=== PATIENT | male | born 1975 | race Caucasian/White ===

== ENCOUNTER 2018-12-24 14:51 | Emergency (ER) | payer SELFPAY ==
[2018-12-24 14:52] VITALS: BP 130/82; PULSE 90; RESP 17; TEMP 36.6; O2SAT 98; BMI 29.0
--- NOTE | 2018-12-24 15:11 | RAD_ITS ---
STUDY: X-RAY - LEFT KNEE REASON FOR EXAM: Left knee pain status post injury 12 days ago. TECHNIQUE: 4 view(s) of the knee. COMPARISON: None. FINDINGS: Normal visualized distal femur. There is a nondisplaced fracture of the medial tibial plateau. Normal proximal tibiofibular articulation. Normal medial femorotibial compartment. Normal lateral femorotibial compartment. Normal patellofemoral articulation. There is a joint effusion. RAD/Knee 4 or More Views IMPRESSION: Nondisplaced fracture of the medial tibial plateau. Joint effusion. Electronically Signed: Lucas Adams MD at 15:40 EDT Tel , Service support ,
--- NOTE | 2018-12-24 15:16 | ED.VISSUMM ---
- ER Visit Summary Date of Service: 12/24/18 Chief Complaint: Knee pain History of Present Illness: The patient is a 43 M with left knee pain. Pain started about 12 days ago. He was stepping down stairs when he felt his knee move abnormally. He was seen in an outside emergency department. They did not do x-rays. They told him he had a knee strain. He was placed on crutches. Rest, ice, elevate. His pain is worsening. He has severe pain with weightbearing. No other associated symptoms except for some swelling. Physical Examination: Afebrile vital signs unremarkable. Inspection shows mild diffuse swelling. No deformity. Skin intact. Range of motion intact. Neurovascular intact. No laxities. He does have pain on palpation to his anterior knee including the patella, proximal tibia, and bilateral joint lines. Test Results: X-rays pending Emergency Department Course and Treatment: Patient was treated with pain medicine while awaiting x-ray results. X-rays show a left tibial plateau fracture, medial side. Patient was placed in a knee immobilizer. Nonweightbearing. Follow-up with orthopedics. Treatment Plan: As above Disposition: Discharge Impression: 1. Left tibial plateau fracture This note was generated with [employer] dictation software. It may contain incorrect words, spelling, and punctuation that were not noted in review of the chart prior to signing ED Disposition - Plan for ED Patient: Referrals: Care Physician,No Primary [Primary Care Provider] -
[2018-12-24] MEDS: HYDROcodone Bitartrate/Apap 5/325 Tablet PO (15:17)
--- NOTE | 2018-12-24 17:17 | ED.DEP ---
ED Disposition - Plan for ED Patient: Instructions: FRACTURE, Knee Prescriptions: Oxycodone HCl/Acetaminophen [Percocet 5/325] 1 tab PO Q6H PRN PRN 3 Days #12 tab PRN Reason: Pain Prescription Printed Referrals: Mikhail Wallace DO [STAFF PHYSICIAN] -
[2018-12-24 17:46] VITALS: BP 134/80; PULSE 87; RESP 16; O2SAT 99
== END 2018-12-24 17:51 | disposition home or self-care (01) ==
LOC: ED 15:18
PROVIDERS: Emergency Provider Emergency Medicine
DX: S82.145A Nondisplaced bicondylar fracture of left tibia, initial encounter for closed fracture (principal); Z72.0 Tobacco use; X50.9XXA Other and unspecified overexertion or strenuous movements or postures, initial encounter; Y93.01 Activity, walking, marching and hiking; Y92.009 Unspecified place in unspecified non-institutional (private) residence as the place of occurrence of the external cause; Y99.8 Other external cause status
CPT/HCPCS: 73564; 99283

== ENCOUNTER 2023-01-01 13:17 | Emergency (ER) | payer MEDICAID, SELFPAY ==
[2023-01-01 13:18] VITALS: BP 127/71; PULSE 90; RESP 18; TEMP 36.4; O2SAT 100; BMI 30.1
--- NOTE | 2023-01-01 13:41 | EDS_ITS ---
HPI History of Present Illness Chief Complaint: Dental Informant: patient Onset/Context/Timing Onset: Weeks (2) Context: Gradual Onset Timing: Continuous Quality: Throbbing, aching Location: Right lower molar Worsened by: Nothing Relieved by: Topicals Associated Symptoms Assocated Symptom - Dental: jaw swelling, cold sensitivity and hot sensitivity; Negative for fever or face swelling Narrative Narrative: Patient presents with right lower dental pain that has been getting worse over the past 2 weeks. Patient states he was able to make a dentist appointment today. Patient states the pain has gotten progressively worse. Patient describes it as throbbing and aching. Patient states the pain is mainly over his lower right molar. Patient denies any fevers or chills. Patient admits to hot and cold sensitivity. Patient states he had some swelling in his jaw but this improved with a heat pack. Patient states his pain radiates into his right ear. Prior similar symptoms: Yes PFSH PFSH Medical History (Updated 01/01/23 @ 13:[address] Baltazar Melendez DO) No acute medical problems Medical History no medical history no medical history Home Medications oxycodone-acetaminophen 5 mg-325 mg tablet (Percocet) 1 tab PO Q8H #40 tabs 12/30/18 [Rx Last Taken Unknown] penicillin V potassium 500 mg tablet 500 mg PO 4X/DAY #40 tabs 01/01/23 [Rx Last Taken Unknown] Allergy/AdvReac Type Severity Reaction Status Date / Time acetaminophen [From Vicodin] AdvReac Nausea Verified 01/01/23 13:31 hydrocodone [From Vicodin] AdvReac Nausea Verified 01/01/23 13:31 Surgical History (Updated 01/01/23 @ 13:[address] Baltazar Melendez DO) Hx of cholecystectomy Hx of tonsillectomy Social History Smoking Status: Current every day smoker tobacco type: cigarettes ROS ROS ED Constitutional Constitutional ED: Denies chills or fever(s) Eyes Eyes: Denies blurry vision or change in vision ENT ENT ED: Reports ear pain right; Denies rhinorrhea or sore throat Cardiovascular Cardiovascular: Denies chest pain or palpitations Respiratory/Chest Respiratory/Chest: Denies cough or dyspnea Gastrointestinal Gastrointestinal: Reports nausea; Denies vomiting Genitourinary Genitourinary ED: Denies dysuria or hematuria Musculoskeletal Musculoskeletal: Denies back pain or neck pain Integumentary Denies abscess or rash Neurologic Neurologic: Denies headache(s) or weakness Allergic/Immunologic Allergic/Immunologic ED: Denies mouth swelling or urticaria EXAM Physical Exam Const Vital Signs: 01/01/23 13:18 Temperature 97.5 F L Temperature Source Temporal Pulse Rate 90 Respiratory Rate 18 Blood Pressure 127/71 H Blood Pressure Mean 89 Pulse Ox 100 Oxygen Delivery Method Room Air Positive well nourished and well developed General Appearance ED: well developed and NAD HEENT Reports TM's clear Tympanic Membrane ED: Yes TM's clear Mouth ED: Yes oral and palatal mucosa normal, Yes lips normal and Yes tongue normal Mouth: oral and palatal mucosa normal, lips normal and tongue normal Teeth and Gingiva: caries, gingiva abnormal Positive for gingival edema and poor dentition Throat: posterior oropharynx normal Eyes PERRL and EOMs intact bilaterally Neck supple and no JVD General: Negative for anterior neck swelling, tenderness or submandibular swelling Neuro oriented x3, CN's II-XII intact bilaterally, moves all extremities, no focal mo tor deficits and no sensory deficits noted Sensorium / Orientation: alert Motor Exam: strength 5/5 throughout Psych mental status grossly normal MDM MDM MDM Narrative Medical decision making narrative: Smoking cessation was discussed. Patient was advised that this is most likely infected dental caries. Patient was given a prescription for Pen-Vee K. Patient was given his first dose here. Patient was instructed to take Tylenol or ibuprofen as needed for pain. Patient was instructed to follow-up with his dentist as scheduled. Patient was instructed return if worse in any way. Patient understood and was agreeable with the plan. All questions were answered. Discharge Plan Triage Chief Complaint: Dental ED Provider: Baltazar Melendez Dx/Rx/DC Orders Clinical Impression: Infected dental caries Instructions: ED Dental Pain, ED Dental Cavity Prescriptions: New penicillin V potassium 500 mg tablet 500 mg PO 4X/DAY Qty: 40 0RF No Action oxycodone-acetaminophen [Percocet] 5-325 mg tablet 1 tab PO Q8H Qty: 40 0RF Rx Instructions: 1-2 tabs every 8 hrs as needed for pain Primary Care Provider: Care Physician,No Primary Referrals: Care Physician,No Primary [Primary Care Provider] - Dentist,Your [STAFF PHYSICIAN] - Keep Salvatore appointment Disposition Disposition: Home, Self Care
[2023-01-01 13:57] VITALS: BP 114/66; PULSE 64; RESP 18; O2SAT 95
[2023-01-01] MEDS: Penicillin Vk 250 MG Tablet 500 MG PO (13:59)
[2023-01-01] MEDS: Ibuprofen 400 MG Tablet 800 MG PO (13:59)
== END 2023-01-01 14:01 | disposition home or self-care (01) ==
PROVIDERS: Emergency Provider Emergency Medicine; Visit Provider Emergency Medicine
DX: K02.9 Dental caries, unspecified (principal); F17.210 Nicotine dependence, cigarettes, uncomplicated; H92.01 Otalgia, right ear
CPT/HCPCS: 99283

== ENCOUNTER 2023-02-02 18:51 | Emergency (ER) | payer MEDICAID, SELFPAY ==
[2023-02-02 18:53] VITALS: BP 176/102; PULSE 81; RESP 17; TEMP 36.6; O2SAT 98; BMI 33.1
--- NOTE | 2023-02-02 19:24 | EDS_ITS ---
HPI History of Present Illness Chief Complaint: Overdose Detail of Chief Complaint: Unresponsiveness after taking what patient believes was Dee Informant: patient Onset/Context/Timing Onset: Today Context: Sudden Onset Timing: Intermittent Quality: Unresponsiveness Location: Residence Current Severity: Gone Maximum Severity: Severe Worsened by: Opiate analgesia Relieved by: Narcan Associated Symptoms Associated Symptoms: Leg swelling for the past several weeks Narrative Narrative: Patient is a 47-year-old male. 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 He is present but unemployed. He has been sitting a lot. He denies orthopnea or PND. He denies cardiac or respiratory symptoms. Does report swelling of his legs. He denies history of kidney problems. He does have history of drug abuse. He would not answer when he last used. His response was he does not have a bad problem. He denies headache, visual, ocular auditory symptoms. He denies cardiac or respiratory symptoms. He denies GI symptoms. He denies urologic symptoms. Prior similar symptoms: Yes Recent Illness/Hospitalization: No PFSH PFSH Medical History No acute medical problems Home Medications NK 02/02/23 [History Last Taken Unknown] Allergy/AdvReac Type Severity Reaction Status Date / Time acetaminophen [From Vicodin] AdvReac Nausea Verified 02/02/23 18:52 hydrocodone [From Vicodin] AdvReac Nausea Verified 02/02/23 18:52 Surgical History Hx of cholecystectomy Hx of tonsillectomy Social History (Updated 02/02/23 @ 19:[address] Lei Braswell MD) household members: children Smoking Status: Current every day smoker tobacco type: cigarettes substance use type: other details: Drug use but specified not a significant problem ROS ROS ED Constitutional Constitutional ED: Denies chills, fever(s) or subjective Eyes Eyes: Denies blurry vision, change in vision or diplopia ENT ENT ED: Denies ear pain, rhinorrhea or sore throat Cardiovascular Cardiovascular: Denies chest pain or palpitations Respiratory/Chest Respiratory/Chest: Denies cough, dyspnea or dyspnea on exertion Gastrointestinal Gastrointestinal: Denies abdominal pain, nausea or vomiting Musculoskeletal Musculoskeletal: Denies arthralgias, back pain or myalgias Integumentary Denies abscess or rash Neurologic Neurologic: Denies headache(s), paresthesias or weakness Endocrine Endocrinology: Denies cold intolerance or heat intolerance Hematologic/Lymphatic Hematologic/Lymphatic: Reports systems reviewed and no addt'l complaints, except as documented EXAM Physical Exam Const Vital Signs: 02/02/23 18:53 Temperature 97.9 F Temperature Source Temporal Pulse Rate 81 Respiratory Rate 17 Blood Pressure 176/102 H Blood Pressure Mean 126 Pulse Ox 98 Oxygen Delivery Method Room Air Positive well nourished, well developed and unkempt Constitutional Narrative: Reports being cold. General Appearance ED: unkempt, well developed and NAD; Negative for pallor HEENT Reports moist mucous membranes HEENT Narrative: Atraumatic normocephalic. Ears are normal. Nares are patent. Posterior pharynx is normal. Eyes PERRL and EOMs intact bilaterally General Eye ED: Negative for pale conjunctiva or scleral icterus Neck no lymphadenopathy, supple and no JVD Resp normal respiratory effort and clear to auscultation bilaterally Cardio regular rate, regular rhythm, S1 normal heart sound, S2 normal heart sound and no murmurs GI normal to inspection, nondistended, normoactive bowel sounds, non-tender, non- distended and no masses; Negative for hepatosplenomegaly Auscultation: normoactive bowel sounds Back/Spine no CVA tenderness Extremity normal to inspection General Extremety ED: Yes edema General Extremity: edema Neuro oriented x3, CN's II-XII intact bilaterally and no sensory deficits noted Neuro Narrative: Does have palpable DP pulse bilaterally, 2+. He has hair on his toes. Sensorium / Orientation: alert Motor Exam: strength 5/5 throughout Psych Appearance: unkempt Mood & Affect: depressed Skin no rashes or lesions noted, no wounds and skin turgor normal General Skin Exam: Negative for jaundice or pallor MDM MDM MDM Narrative Medical decision making narrative: And responded to Narcan will observe for 30 minutes. If he remains alert and awake he will be discharged home. He was told he has dependent edema. Treatment is to elevate and elevation means toes above his nose and he needs to get up and ambulate more. Treatment and Re-Evaluation :: Reassessed at 2004. He is awake alert. Vitals are normal. Is not hypoxic. Discharge Plan Triage Chief Complaint: Overdose ED Provider: Lei Braswell Dx/Rx/DC Orders Clinical Impression: Dependent lymphedema, Sinus tachycardia seen on director of cardiac rehabilitation, Opiate overdose Instructions: ED Peripheral Edema, Bilateral, ED Overdose, Opiate Prescriptions: No Action NK Primary Care Provider: Care Physician,No Primary Referrals: Care Physician,No Primary [Primary Care Provider] - Disposition Disposition: Home, Self Care
== END 2023-02-02 20:29 | disposition home or self-care (01) ==
PROVIDERS: Emergency Provider Emergency Medicine; Visit Provider Emergency Medicine
DX: T40.601A Poisoning by unspecified narcotics, accidental (unintentional), initial encounter (principal); M79.89 Other specified soft tissue disorders; R00.0 Tachycardia, unspecified; R40.4 Transient alteration of awareness; F17.210 Nicotine dependence, cigarettes, uncomplicated; I89.0 Lymphedema, not elsewhere classified
CPT/HCPCS: 99284

== ENCOUNTER 2023-07-02 16:26 | Emergency (ER) | payer MEDICAID, SELFPAY ==
[2023-07-02 16:33] VITALS: BP 158/88; PULSE 85; RESP 18; TEMP 36.2; O2SAT 99
--- NOTE | 2023-07-02 16:45 | RAD_ITS ---
STUDY: X-RAY - LEFT KNEE REASON FOR EXAM: Male, 47 years old. pain, inability to ambulate TECHNIQUE: 4 view(s) of the knee. COMPARISON: None. FINDINGS: Normal visualized distal femur. Normal visualized proximal tibia and fibula. Normal proximal tibiofibular articulation. Narrowed medial femorotibial compartment. Normal lateral femorotibial compartment. Normal patellofemoral articulation. The soft tissue structures are unremarkable. RAD/Knee 4 or More Views IMPRESSION: Mild degenerative changes. No acute fracture or other significant bony pathology Electronically Signed: Rey Buitrago MD at 17:02 EDT Reading Location ID and State: [facility] / [place] Tel , Service support ,
--- NOTE | 2023-07-02 18:40 | ED.VIS.LOWEX ---
HPI History of Present Illness Chief Complaint: Lower Extremity Injury Narrative Narrative: 47-year-old male past medical history of remote left tibial plateau fracture with nonsurgical intervention presents with left knee pain that has had since Sunday, 3 days ago. He states that he was in the van and went to get out and jumped down and deepti his left knee. Since then he has been having pain that is worse with movement and weightbearing. He has been taking ibuprofen and [id number] medications without relief. Of note, he is currently in [facility] for rehab and does not want to jeopardize his sobriety. He presents with left knee pain. [facility] Medical History No acute medical problems Home Medications NK 02/02/23 [History Last Taken Unknown] Allergy/AdvReac Type Severity Reaction Status Date / Time acetaminophen [From Vicodin] AdvReac Nausea Verified 07/02/23 16:33 hydrocodone [From Vicodin] AdvReac Nausea Verified 07/02/23 16:33 Surgical History Hx of cholecystectomy Hx of tonsillectomy Social History (Updated 02/02/23 @ 19:[address] Lei Braswell MD) household members: children Smoking Status: Current every day smoker tobacco type: cigarettes substance use type: other details: Drug use but specified not a significant problem ROS ROS ED ROS Narrative Constitutional: No fever, no chills. HEENT: No sore throat. No neck pain. No loss of vision. No rhinorrhea. Cardiovascular: No chest pain. No palpitations. No pedal edema. Respiratory: No cough, no shortness of breath. Abdominal: No abdominal pain. No nausea. No vomiting. Genitourinary: No dysuria. No hematuria. Musculoskeletal: No myalgias. Positive left knee pain somewhat worse with weightbearing and movement. Neurologic: No headaches. No dizziness. No lightheadedness. Skin: No rash. No change in color. Psychiatric: No depression. No anxiety. EXAM Physical Exam Narrative Exam Narrative: Afebrile. Vital signs noted. HEENT: Normocephalic. Atraumatic. PERRL, EOMI. Neck soft and supple. No point tenderness or step off. Cardiovascular: Regular rate and rhythm. No murmurs, rubs, or gallops appreciated. Respiratory: No tachypnea. Lungs clear to auscultation bilaterally. Gastrointestinal: Abdomen soft, nontender, with normoactive bowel sounds. No rebound or guarding. Neurological: Awake. Alert. Nonfocal, nonlateralizing. Skin: No rash. Normal color. No pallor. Musculoskeletal: No pedal edema. Full range of motion extremities. Able to raise left leg off bed without difficulty. Flexion extension mechanism intact. Diffuse tenderness to palpation without erythema or noted effusion. Neurovascular intact distally. Palpable dorsalis pedis pulse, left. Const Vital Signs: 07/02/23 16:33 Temperature 97.2 F L Temperature Source Temporal Pulse Rate 85 Respiratory Rate 18 Blood Pressure 158/88 H Blood Pressure Mean 111 Pulse Ox 99 Oxygen Delivery Method Room Air MDM MDM MDM Narrative Medical decision making narrative: I reviewed the patient's prior records. He states that he may have gone to [facility] when he had his tibial plateau fracture. In the differential diagnosis is knee sprain versus internal derangement of knee versus patellar tendon partial tear. I have low suspicion for patellar tendon problem as there is no palpable deficit and he is able to raise his leg off the bed without difficulty. RN ordered x-rays of the left knee obtained and interpreted by myself independently which shows arthritis but no evidence of an acute fracture, no effusion. I reviewed the radiology report which confirms my independent interpretation. I discussed with him [place] wrap, but he states he has been doing that and is requesting a knee immobilizer. I do not feel he needs crutches. He can be weightbearing as tolerated. I do not feel narcotics are indicated as he is currently in rehab. He will continue elevation of his knee and he was referred to the orthopedic surgeon on-call, Dr. Erwin Scott. I feel he can be discharged to follow-up. Return instructions reviewed. Disposition is discharged home in stable condition. History & Record Review Discussion w/independent historian: Patient Additional record(s) reviewed:: Prior ED visit Radiography Diagnostic Testing: Clinical Impression(s) from Imaging Studies Knee X-Ray 07/02/23 16:45 IMPRESSION: Mild degenerative changes. No acute fracture or other significant bony pathology Electronically Signed: Rey Buitrago MD at 17:02 EDT , Discharge Plan Triage Chief Complaint: Lower Extremity Injury ED Provider: Osiel Brown Dx/Rx/DC Orders Clinical Impression: Left knee sprain, Knee joint pain Instructions: ED Meniscal Injury Knee Poss, ED Knee Pain of Uncertain Cause, ED Knee Sprain Prescriptions: No Action NK Primary Care Provider: Care Physician,No Primary Referrals: Erwin Scott MD [Med Staff - Active Staff] - As soon as possible Care Physician,No Primary [Primary Care Provider] - Activity Restrictions/Additional Instructions: Continue Tylenol or ibuprofen or naproxen as needed for pain. Elevate your left knee when possible. Disposition Disposition: Home, Self Care
== END 2023-07-02 19:19 | disposition home or self-care (01) ==
PROVIDERS: Emergency Provider Emergency Medicine; Visit Provider Emergency Medicine
DX: S83.92XA Sprain of unspecified site of left knee, initial encounter (principal); F17.210 Nicotine dependence, cigarettes, uncomplicated; Z87.81 Personal history of (healed) traumatic fracture; X50.9XXA Other and unspecified overexertion or strenuous movements or postures, initial encounter
CPT/HCPCS: 73564; 99283

== ENCOUNTER 2024-06-04 09:33 | Observation (INO) | payer MEDICAID, SELFPAY ==
[2024-06-04] VITALS (8 sets, daily range): BP systolic 128–156; BP diastolic 68–89; PULSE 65–88; RESP 16–18; TEMP 36.4–37.2; O2SAT 94–100; BMI 34.6; BMI 34.4
--- NOTE | 2024-06-04 09:44 | EKG12_ITS ---
Test Reason : Blood Pressure : */* mmHG Vent. Rate : 80 BPM Atrial Rate : 80 BPM P-R Int : 140 ms QRS Dur : 100 ms QT Int : 368 ms P-R-T Axes : 54 16 9 degrees QTcB Int : 424 ms Normal sinus rhythm Normal ECG When compared with ECG of 26-Nov-2011 08:07, Questionable change in QRS axis Confirmed by CY GIBBS, ANNETTE ([id number]), manuscript editor MARIAH TREVIÑO ([id number]) on 06/09/2024 7:38:31 AM Referred By: MATIAS Confirmed By: ANNETTE BENOIT MD
--- NOTE | 2024-06-04 09:49 | CT_ITS ---
EXAM: CT Abdomen and Pelvis With Intravenous Contrast CLINICAL INDICATION: LEFT FLANK PAIN TECHNIQUE: Axial computed tomography images of the abdomen and pelvis with intravenous contrast. This CT exam was performed using one or more of the following dose reduction techniques: automated exposure control, adjustment of the mA and/or kV according to patient size, and/or use of iterative reconstruction technique. COMPARISON: No relevant prior studies available. FINDINGS: LUNG BASES: Unremarkable. No mass. No consolidation. ABDOMEN: LIVER: Hepatomegaly with fatty infiltration. GALLBLADDER AND BILE DUCTS: Cholecystectomy. No ductal dilation. PANCREAS: Unremarkable. No mass. No ductal dilation. SPLEEN: Unremarkable. No splenomegaly. ADRENALS: Unremarkable. No mass. KIDNEYS AND URETERS: Unremarkable. No stones within either kidney. No hydronephrosis. STOMACH AND BOWEL: Fecal retention in the colon consistent with constipation. No obstruction. No mucosal thickening. PELVIS: APPENDIX: Normal appendix. BLADDER: Unremarkable. No mass. REPRODUCTIVE: Unremarkable as visualized. ABDOMEN and PELVIS: INTRAPERITONEAL SPACE: Unremarkable. No free air. No significant fluid collection. BONES/JOINTS: No acute fracture. No dislocation. SOFT TISSUES: Left inguinal hernia. VASCULATURE: Scattered calcified atherosclerotic disease of aorta. No abdominal aortic aneurysm. LYMPH NODES: Unremarkable. No enlarged lymph nodes. CT/Abdomen/Pelvis W IV Cont ONLY IMPRESSION: 1. Normal appendix. 2. Hepatomegaly with fatty infiltration. 3. No obstructive uropathy. 4. Fecal retention in the colon consistent with constipation. 5. Left inguinal hernia. Reading Location[facility]
--- NOTE | 2024-06-04 09:50 | EX.ED.DYSGE1 ---
HPI History of Present Illness Chief Complaint: Flank Pain Narrative Narrative: Patient is a 48-year-old male with past medical history of diabetes, hypertension who presents to the emergency department with a chief complaint of left back pain. Patient states that he is concerned he is trying to pass a kidney stone. He states he does not have a history of kidney stones. Patient states that his A1c has been running high near 13 for a while now. He states that he saw his doctor recently as his glucose meter has been reading high and noted that they increased his glipizide dose and noted that they gave him insulin pens to use but states that he has been unable to use this as there is no needles that came with the pens. He states that the pain is worsening he states that he is very thirsty drinking a lot of fluids and peeing a lot lately. [facility] Medical History No acute medical problems Home Medications ?Medication ?Instructions ?Recorded ?Last Taken ?Type amlodipine 10 mg tablet 10 mg PO DAILY 06/04/24 06/04/24 History aripiprazole 10 mg tablet 10 mg PO BID 06/04/24 06/04/24 History aspirin 81 mg tablet,delayed 81 mg PO DAILY 06/04/24 06/04/24 History release glipizide 10 mg tablet 10 mg PO DAILY 06/04/24 06/04/24 History hydrochlorothiazide 12.5 mg tablet 12.5 mg PO DAILY 06/04/24 06/04/24 History insulin glargine 100 unit/mL (3 20 unit subcut QPM 06/04/24 Unknown History mL) subcutaneous pen (Lantus Solostar U-100 Insulin) trazodone 150 mg tablet 150 mg PO QHS 06/04/24 06/03/24 History Allergy/AdvReac Type Severity Reaction Status Date / Time acetaminophen (From Vicodin) AdvReac Nausea Verified 06/04/24 09:33 hydrocodone (From Vicodin) AdvReac Nausea Verified 06/04/24 09:33 Surgical History Hx of tonsillectomy Hx of cholecystectomy Social History household members: children Smoking Status: Current every day smoker tobacco type: cigarettes substance use type: other details: Drug use but specified not a significant problem ROS ROS ED ROS Narrative Constitutional: Denies fevers, chills, headaches Cardiovascular: Denies chest pain or palpitations Respiratory: Denies coughing wheezing shortness of breath Abdomen: Denies abdominal pain nausea vomiting : Complains urinary symptoms as noted above Neurological: Denies numbness, weakness, tingling Musculoskeletal: Complains of left flank pain as noted above Skin: Denies any rashes or lesions EXAM Physical Exam Narrative Exam Narrative: General: Patient is lying in bed rest comfortably did not appear to be in acute distress Head: Atraumatic, normocephalic Eyes: PERRL bilaterally, EOMI bilateral, no conjunctival injection noted Neck: Soft, supple and trachea midline Cardiovascular: Regular rate and rhythm no murmurs gallops rubs noted Respiratory: Clear to auscultation bilaterally Abdomen: Soft, nondistended, nontender to palpation Musculoskeletal: Patient's left flank pain noted on exam, no tense palpation midline of the thoracolumbar spine Extremities: +5/5 strength noted in the bilateral upper and lower extremities Neurological: Patient following commands knew that he was at [facility] years 2024 Skin: Warm, dry, intact no rashes lesions noted Const Vital Signs: 06/04/24 09:33 06/04/24 09:36 06/04/24 12:01 Temperature 98.9 F Temperature Source Oral Pulse Rate 88 70 Respiratory Rate 16 18 Blood Pressure 156/89 H 137/70 H Blood Pressure Mean 111 92 Pulse Ox 100 97 Oxygen Delivery Method Room Air Room Air MDM MDM MDM Narrative Medical decision making narrative: Patient is a 48-year-old male who presented to the emergency department the chief complaint of left flank pain and hyperglycemia. On the differential diagnose includes but not limited to UTI, pyelonephritis, urolithiasis, AAA, ACS, HHS, hyperglycemia, DKA. Once workup is obtained reviewed he will be reevaluated. Patient be given IV fluids. Patient CBC was reviewed and showed a white blood count of 5.7, he was 18.6 hemoconcentrated likely secondary to volume depletion, plate count was 135. Patient sodium low indicating hyponatremia although this is likely pseudohyponatremia in the setting of his hyperglycemia at 119, potassium was 3.9, anion gap of 24 with a CO2 of 10.6. Patient AST and ALT were 21 and 133, beta-hydroxybutyrate normal at 0.8. Patient's urinalysis did show ketones venous blood gas will be added on. Patient's glucose was noted to be 667 he was given 15 units subcutaneous insulin was given additional IV fluids. Patient CT abdomen pelvis showed normal appendix, hepatomegaly with fatty infiltration, no obstructive uropathy. Fecal retention in the colon consistent with constipation with a left inguinal hernia. Did a genitourinary exam and he has no pain or tenderness in the testicles, epididymides bilaterally, no concern for testicular torsion or incarcerated hernia. Patient's EKG showed sinus rhythm rate of 80 bpm. At this point time will discuss case with hospitalist for admission. Did discuss case with hospitalist Dr. Handy who accept patient for admission. Given his large anion gap and him not tolerating oral intake we will treat him as DKA and placed him on insulin drip and in the intensive care unit. Discussed this plan with the patient and family bedside they are agreeable this plan all question concerns answered. Lab Data Labs: Laboratory Results - last 24 hr 06/04/24 06/04/24 09:58 10:00 WBC 5.7 RBC 6.05 Hgb 18.6 H* Hct 50.3 MCV 83.1 MCH 30.7 MCHC 37.0 H RDW Std Deviation 36.9 RDW Coeff of Eric 12.1 Plt Count 135 L MPV 12.3 H Immature Gran % (Auto) 0.400 Neut % (Auto) 57.3 Lymph % (Auto) 31.7 [place] % (Auto) 8.6 Eos % (Auto) 1.1 Baso % (Auto) 0.9 Absolute Neuts (auto) 3.3 Absolute Lymphs (auto) 1.80 Nucleated RBC % 0 [address] Review May foll Sodium 119 L* Potassium 3.9 Chloride 85 L Carbon Dioxide 10.6 L Anion Gap 24 H BUN 16 Creatinine 0.84 Estim Creat Clear Calc 130.36 Est GFR (MDRD) Non-Af 106 BUN/Creatinine Ratio 18.5 Glucose 667 H* Lactic Acid 1.8 Calcium 9.1 Total Bilirubin 0.44 AST 121 H ALT 133 H Alkaline Phosphatase 114 Total Protein 7.7 Albumin 3.6 Globulin 4.1 Albumin/Globulin Ratio 0.9 Lipase 46 b-Hydroxybutyric mmol/L 0.8 Urine Color Yellow Urine Clarity Clear Urine pH 6.5 Ur Specific [place] 1.010 Urine Protein 15 H Urine Glucose (UA) 1000 H Urine Ketones 15 H Urine Occult Blood Negative Urine Nitrite Negative Urine Bilirubin Negative Urine Urobilinogen Normal Ur Leukocyte Esterase Negative Urine RBC 0 SEEN Urine WBC 0 SEEN Ur Squamous Epith Cells 0 SEEN Urine Bacteria 0 SEEN Urine Mucus 0 SEEN Radiography Diagnostic Testing: Clinical Impression(s) from Imaging Studies Abdomen/Pelvis CT 06/04/24 09:49 IMPRESSION: 1. Normal appendix. 2. Hepatomegaly with fatty infiltration. 3. No obstructive uropathy. 4. Fecal retention in the colon consistent with constipation. 5. Left inguinal hernia. Reading Location: [facility] Discharge Plan Triage Chief Complaint: Flank Pain ED Provider: Vinicius Mesa Dx/Rx/DC Orders Clinical Impression: High anion gap metabolic acidosis, Flank pain, Hernia, inguinal, left, Hyperglycemia, Hyponatremia Prescriptions: No Action glipizide 10 mg tablet 10 mg PO DAILY aspirin 81 mg tablet,delayed release (DR/EC) 81 mg PO DAILY amlodipine 10 mg tablet 10 mg PO DAILY trazodone 150 mg tablet 150 mg PO QHS aripiprazole 10 mg tablet 10 mg PO BID hydrochlorothiazide 12.5 mg tablet 12.5 mg PO DAILY insulin glargine [Lantus Solostar U-100 Insulin] 100 unit/mL (3 mL) insulin pen 20 unit subcut QPM Patient Comments: PT WAS GIVEN PENS FROM MD OFFICE ON 06/02/24, BUT NOT GIVEN PEN NEEDLES SO HASNT BEEN ABLE TO ADMINISTER. Primary Care Provider: Sonido Mcneil [facility] Referrals: Care Physician,No Primary [Non-Staff] - Print Language: Portuguese Disposition Disposition: Acute Care Hospital [facility]
[2024-06-04] MEDS: 0.9% Normal Saline (1000mL) 1,000 ML 999 ML IV ×2 (10:08→14:07)
[2024-06-04] MEDS: Ondansetron 4 MG/2 ML Vial IV ×2 (10:09→12:16)
[2024-06-04] MEDS: Morphine 4 MG/ML Syringe IV ×2 (10:09→12:15)
[2024-06-04 10:11] LABS: Bacteria 0 SEEN /hpf (None Seen); Mucous, Urine 0 SEEN /hpf (<or=2+); Squamous Epithelial Cells - UA 0 SEEN /hpf (0-5); White Blood Cells 0 SEEN /hpf (0-5)
[2024-06-04 10:20] LABS: Absolute Neutrophil Count 3.3 X10^3/uL (2.0-7.7); Basophil# 0.05 X10^3/uL; Basophil% 0.9 % (0-1); Eosinophil# 0.06 X10^3/uL; Eosinophils% 1.1 % (0-5); Hematocrit 50.3 % (40-54); Lymphocyte % 31.7 % (19-41); Mean Corpuscular Hgb 30.7 pg (27.0-32.0); Mean Corpuscular Volume 83.1 fL (80-94); Mean Platelet Vol. 12.3 fl (6.2-12.0); Monocyte# 0.49 X10^3/uL; Monocyte% 8.6 % (0-10); NRBC Flagged by Analyzer 0 % (0-5); Neutrophil # 3.26 X10^3/uL (2.7-7.7); Neutrophil % 57.3 % (47-70); Platelet Count 135 K/mm3 (150-450); RBC Distribution Width CV 12.1 % (11.6-14.6); RBC Distribution Width SD 36.9 fl (35.1-43.9); Red Blood Count 6.05 M/mm3 (4.6-6.2); White Blood Count 5.7 K/mm3 (4.4-11.0)
[2024-06-04 10:23] LABS: Color, Urine Yellow (Yellow); Glucose, Dipstick 1000 mg/dl (Normal); Ketone-Dipstick 15 mg/dl (Negative); Leukocyte Esterase-Dipstick Negative /ul (Negative); Nitrite-Dipstick Negative (Negative); Occult Blood-Urine Negative /ul (Negative); Protein-Dipstick 15 mg/dl (Negative); Urine Bilirubin Dipstick Negative (Negative); Urine Clarity Clear (Clear); Urine Urobilinogen Normal (Normal); Urine pH 6.5 (5.0 - 8.0)
[2024-06-04 10:30] LABS: Red Blood Cells-Urine 0 SEEN /hpf (0-5)
[2024-06-04 10:36] LABS: Hemoglobin 18.6 g/dL (13.0-16.5)
[2024-06-04 10:38] LABS: Pathologist Review May foll
[2024-06-04 10:42] LABS: Lactic Acid 1.8 mmol/L (0.0-2.0)
[2024-06-04 10:43] LABS: BETA-HYDROXYBUTYRATE 0.8 mmol/L (0.0-0.3); Lipase 46 U/L (13-75)
[2024-06-04 11:00] LABS: ALB/GLOB Ratio 0.9 RATIO (0.9-2.4); AST(SGOT) 121 U/L (<=37); Alanine Aminotransfer ALT/SGPT 133 U/L (<=46); Albumin, Serum 3.6 g/dL (3.5-5.0); Alkaline Phosphatase 114 U/L (40-129); Anion Gap 24 (5-15); BUN 16 mg/dL (4-19); BUN/Creat Ratio 18.5 RATIO (10-20); Calcium,Total 9.1 mg/dL (7.6-11.0); Carbon Dioxide 10.6 mmol/L (21.0-32.0); Chloride 85 mmol/L (98-108); Creatinine, Serum 0.84 mg/dL (0.70-1.20); EST Glomerular Filtration Rate 106 (>60); Estimated Creatinine Clearance 130.36 ml/min (50-250); Globulin 4.1 g/dL (2.2-4.2); Potassium 3.9 mmol/L (3.3-5.1); Protein, Total 7.7 g/dL (5.9-8.4); Total Bilirubin 0.44 mg/dL (0.00-1.30)
[2024-06-04 11:18] LABS: Glucose 667 mg/dL (70-99); Sodium Level 119 mmol/L (133-145)
[2024-06-04] MEDS: Insulin Lispro 100 UNIT/ML INSULN.PEN 15 UNIT SC (11:36)
--- NOTE | 2024-06-04 13:15 | PCM.HP.STD ---
HPI - General General Date of Admission: 06/04/24 Date of Service: 06/04/24 Chief Complaint: Worsening abdominal/flank pain with polyuria and polydipsia HPI Narrative ALFONSO LINARES, is a 48 M who presented to [facility] ED on 06/04/2024 with worsening abdominal/flank pain with polyuria and polydipsia. Patient has history of recently diagnosed type 2 diabetes about 4 to 5 months ago. He follows with the [facility] clinic. He was previously on only glipizide but was found to have an A1c of around 13% somewhat recently, so his PCP there prescribed him long-acting insulin at night. However, patient states that he did not get any needles with the insulin pens and has not been taking the insulin. He has had significant polyuria and polydipsia over the past several days. Yesterday night and into this morning he developed significant left-sided abdominal/flank pain. [place] like he was trying to pass a kidney stone. Does not have history of kidney stones. In the ED he was found to have a glucose of 667. Did have a bicarbonate of 10 and anion gap of 24, but notably hydroxybutyrate was negative. CT abdomen pelvis showed fecal retention with constipation but no other issues noted. He was given 2 L of IV fluids, doses of Zofran and IV morphine and after these things he noted that he was feeling much improved. Noted that he was feeling hungry and wanted to have food when possible. Given all of these findings, hospitalist was contacted for admission. I saw the patient at bedside in the ED, mother was present. Patient was mildly fatigued appearing but otherwise sitting back comfortably in bed, conversing normally and in no acute distress. Had good skin turgor and tone and stated that he felt much improved after the treatments in the ED. Stated his abdominal/flank pain was essentially gone. Denied any recent fevers or chills. Denied any other pain or discomfort currently. No other acute concerns. [facility] Medical History No acute medical problems Home Medications ?Medication ?Instructions ?Recorded ?Last Taken ?Type amlodipine 10 mg tablet 10 mg PO DAILY 06/04/24 06/04/24 History aripiprazole 10 mg tablet 10 mg PO BID 06/04/24 06/04/24 History aspirin 81 mg tablet,delayed 81 mg PO DAILY 06/04/24 06/04/24 History release glipizide 10 mg tablet 10 mg PO DAILY 06/04/24 06/04/24 History hydrochlorothiazide 12.5 mg tablet 12.5 mg PO DAILY 06/04/24 06/04/24 History insulin glargine 100 unit/mL (3 20 unit subcut QPM 06/04/24 Unknown History mL) subcutaneous pen (Lantus Solostar U-100 Insulin) trazodone 150 mg tablet 150 mg PO QHS 06/04/24 06/03/24 History Allergy/AdvReac Type Severity Reaction Status Date / Time acetaminophen (From Vicodin) AdvReac Nausea Verified 06/04/24 09:33 hydrocodone (From Vicodin) AdvReac Nausea Verified 06/04/24 09:33 Surgical History Hx of tonsillectomy Hx of cholecystectomy Social History household members: children Smoking Status: Current every day smoker tobacco type: cigarettes substance use type: other details: Drug use but specified not a significant problem ROS Constitutional Constitutional: Reports fatigue; Denies chills, fever(s) or weakness Eyes Eyes: Denies change in vision Cardiovascular Cardiovascular: Denies chest pain Respiratory/Chest Respiratory/Chest: Denies shortness of breath at rest Gastrointestinal Gastrointestinal: Reports abdominal pain, constipation and nausea; Denies diarrhea or vomiting Genitourinary Genitourinary: Denies dysuria Musculoskeletal Musculoskeletal: Denies arthralgias or myalgias Neurologic Neurologic: Denies dizziness or headache(s) Endocrine Endocrinology: Reports polydipsia and polyuria Vital Signs Vital Signs Vital Signs: 06/04/24 09:33 06/04/24 09:36 06/04/24 12:01 Temperature 98.9 F Temperature Source Oral Pulse Rate 88 70 Respiratory Rate 16 18 Blood Pressure 156/89 H 137/70 H Blood Pressure Mean 111 92 Pulse Ox 100 97 Oxygen Delivery Method Room Air Room Air Weight Weight: 109.497 kg Body Mass Index (BMI) 34.6 Physical Exam Const alert, oriented x3 and no apparent distress Constitutional Narrative: Middle-age male, class I obesity, mildly fatigued appearing but otherwise sitting back comfortably in bed, conversing normally and in no acute distress. General Appearance: cooperative and comfortable HEENT normocephalic, head/scalp atraumatic, hearing grossly normal bilaterally, nasal mucous membranes and turbinates normal and moist oral mucous membranes Eyes PERRL, EOMs intact bilaterally and conjunctivae normal Neck full ROM Chest inspection of chest normal Resp normal respiratory effort, normal air movement, no use of accessory muscles and clear to auscultation bilaterally Cardio regular rate, regular rhythm, no murmurs and peripheral pulses 2+ throughout GI normal to inspection, nondistended, normoactive bowel sounds, soft to palpation, non-tender and non-distended no CVA tenderness Bladder / Kidney Exam: bladder normal to palpation Back/Spine normal ROM Extremity normal to inspection, full ROM and no pedal edema Skin no rashes or lesions noted Neuro moves all extremities and no focal motor deficits Speech: speech normal Motor Exam: strength 5/5 throughout Psych mental status grossly normal Results Lab / Micro Data 06/04/24 09:58 06/04/24 09:58 Labs: Laboratory Results - last 24 hr 06/04/24 09:58: WBC 5.7, RBC 6.05, Hgb 18.6 H*, Hct 50.3, MCV 83.1, MCH 30.7, MCHC 37.0 H, RDW Std Deviation 36.9, RDW Coeff of Eric 12.1, Plt Count 135 L, MPV 12.3 H, Immature Gran % (Auto) 0.400, Neut % (Auto) 57.3, Lymph % (Auto) 31.7, [place] % (Auto) 8.6, Eos % (Auto) 1.1, Baso % (Auto) 0.9, Absolute Neuts (auto) 3.3, Absolute Lymphs (auto) 1.80, Nucleated RBC % 0, Diff Path Review July, Sodium 119 L*, Potassium 3.9, Chloride 85 L, Carbon Dioxide 10.6 L, Anion Gap 24 H, BUN 16, Creatinine 0.84, Estim Creat Clear Calc 130.36, Est GFR (MDRD) Non-Af 106, BUN/Creatinine Ratio 18.5, Glucose 667 H*, Lactic Acid 1.8, Calcium 9.1, Total Bilirubin 0.44, AST 121 H, ALT 133 H, Alkaline Phosphatase 114, Total Protein 7.7, Albumin 3.6, Globulin 4.1, Albumin/Globulin Ratio 0.9, Lipase 46, b-Hydroxybutyric mmol/L 0.8 06/04/24 10:00: Urine Color Yellow, Urine Clarity Clear, Urine pH 6.5, Ur Specific [place] 1.010, Urine Protein 15 H, Urine Glucose (UA) 1000 H, Urine Ketones 15 H, Urine Occult Blood Negative, Urine Nitrite Negative, Urine Bilirubin Negative, Urine Urobilinogen Normal, Ur Leukocyte Esterase Negative, Urine RBC 0 SEEN, Urine WBC 0 SEEN, Ur Squamous Epith Cells 0 SEEN, Urine Bacteria 0 SEEN, Urine Mucus 0 SEEN Imaging Radiology Impression Abdomen/Pelvis CT 06/04/24 09:49 IMPRESSION: 1. Normal appendix. 2. Hepatomegaly with fatty infiltration. 3. No obstructive uropathy. 4. Fecal retention in the colon consistent with constipation. 5. Left inguinal hernia. Reading Location: [facility] Assessment & Plan Assessment/Plan (1) Hyperglycemia: (2) Hyponatremia: PLAN: Plan Patient is a 48-year-old male who presented to [facility] ED on 06/04/2024 with worsening abdominal/flank pain, polyuria and polydipsia. 1. Poorly controlled type 2 diabetes mellitus with severe hyperglycemia ? Admit under inpatient status to PCU. Patient with borderline DKA on admission given severe hyperglycemia with anion gap of 24 and abdominal pain with nausea. However, beta-hydroxybutyrate was negative and patient had significant improvement in the ED with IV fluids, Zofran and morphine. Was given dose of Humalog 15 units as well. Repeat BMP was pending. Patient noted that his appetite had returned and he was hoping to eat soon. Thus, decision was made to treat patient as severe hyperglycemia but not as DKA. Will treat with Lantus 30 units at night and Humalog 10 units with meals plus sliding scale insulin. Will adjust as needed. A1c ordered. Carb controlled diet ordered. Dietitian consulted for diabetes education especially as patient will presumably need insulin therapy on discharge. 2. Hyponatremia with superimposed pseudohyponatremia ? Sodium 119, chloride 85 on admit. Corrected sodium of 128 in setting of severe hyperglycemia. Presume secondary to dehydration from significant polyuria and polydipsia from hyperglycemia. Given 2 L of normal saline in the ED, follow-up repeat labs. 3. Mild elevated LFTs ? AST 121, ALT 133 on admit. No baseline labs available. CT abdomen pelvis showed hepatomegaly with fatty infiltration. Presume elevated LFTs are secondary to fatty liver disease. Follow-up a.m. LFTs and if stable, no need to monitor further. Chronic medical conditions: ? Class I obesity: BMI 34 on admit. Encouraged lifestyle modifications. Complicates hospital course, care and prognosis. ? Hypertension: Holding home amlodipine and hydrochlorothiazide for now, will restart as able. ? Mood disorder: Continue home aripiprazole and trazodone at night as needed. DVT prophylaxis: Lovenox CODE STATUS: Full code, verified Expected disposition: Home, 2 to 3 days Total clinical time spent by myself addressing the patient's medical issues, reviewing all the data, and collaborating with patient's care team: 75 minutes. Charges/Coding Visit Charges Inpatient E&M: 80149 Init Hosp L3
[2024-06-04 13:56] LABS: Hemoglobin A1c 14.6 % (<=5.6)
[2024-06-04 14:05] LABS: Magnesium 1.9 mg/dL (1.5-2.2); Phosphorus 3.2 mg/dL (2.7-4.5)
[2024-06-04 14:57] LABS: Blood Gas Specimen Type VEN; O2 Delivery Device Not entered; SITE Not entered; VBG BASE EXCESS 2 mmol/L (-1.0-3.5); VBG Bicarbonate 28 mmol/L (22-26); VBG PO2 37 mmHg (25-40); VBG SO2 66 % (50-70); VBG TCO2 30 mmol/L (23-33); VBG pCO2 51.6 mmHg (41-51); VBG pH 7.34 (7.32-7.42)
[2024-06-04] MEDS: Acetaminophen 325 MG Tablet 650 MG PO (16:38)
[2024-06-04 16:51] LABS: Anion Gap 18 (5-15); BUN 12 mg/dL (4-19); BUN/Creat Ratio 16.5 RATIO (10-20); Calcium,Total 8.7 mg/dL (7.6-11.0); Carbon Dioxide 18.3 mmol/L (21.0-32.0); Chloride 91 mmol/L (98-108); Creatinine, Serum 0.71 mg/dL (0.70-1.20); EST Glomerular Filtration Rate 112 (>60); Estimated Creatinine Clearance 153.86 ml/min (50-250); Glucose 344 mg/dL (70-99); Potassium 3.9 mmol/L (3.3-5.1); Sodium Level 127 mmol/L (133-145)
[2024-06-04] MEDS: Insulin Lispro 100 UNIT/ML INSULN.PEN SC ×2 (17:02→21:39)
[2024-06-04 17:03] LABS: Bedside Glucose 365 mg/dL (74-106)
[2024-06-04] MEDS: Insulin Lispro 100 UNIT/ML INSULN.PEN 10 UNIT SC (17:03)
[2024-06-04] MEDS: oxyCODONE 5 MG Tablet PO ×2 (17:26→21:39)
[2024-06-04] MEDS: Lactated Ringers 1,000 ML 500 ML IV (17:27)
[2024-06-04 21:03] LABS: Anion Gap 15 (5-15); BUN 11 mg/dL (4-19); BUN/Creat Ratio 14.5 RATIO (10-20); Calcium,Total 8.7 mg/dL (7.6-11.0); Carbon Dioxide 19.6 mmol/L (21.0-32.0); Chloride 94 mmol/L (98-108); Creatinine, Serum 0.78 mg/dL (0.70-1.20); EST Glomerular Filtration Rate 109 (>60); Estimated Creatinine Clearance 140.05 ml/min (50-250); Glucose 340 mg/dL (70-99); Sodium Level 129 mmol/L (133-145)
[2024-06-04] MEDS: ARIPiprazole 10 MG Tablet PO (21:39)
[2024-06-04 22:06] LABS: Bedside Glucose 285 mg/dL (74-106)
[2024-06-04] MEDS: Insulin Glargine-YFGN 100 UNIT/ML Pen 30 UNIT SC (22:08)
[2024-06-05 02:00] VITALS: BP 130/85; PULSE 56; RESP 15; TEMP 36.6; O2SAT 94
[2024-06-05] MEDS: Acetaminophen 325 MG Tablet 650 MG PO ×2 (02:30→08:19)
[2024-06-05 03:00] VITALS: PULSE 59
[2024-06-05 03:17] LABS: Bedside Glucose 221 mg/dL (74-106)
[2024-06-05 06:36] VITALS: PULSE 51
[2024-06-05 06:52] LABS: Hematocrit 45.8 % (40-54); Hemoglobin 16.6 g/dL (13.0-16.5); Mean Corp Hgb Conc 36.2 g/dL (32-36); Mean Corpuscular Volume 85.4 fL (80-94); Mean Platelet Vol. 11.8 fl (6.2-12.0); Platelet Count 130 K/mm3 (150-450); RBC Distribution Width CV 12.6 % (11.6-14.6); RBC Distribution Width SD 38.8 fl (35.1-43.9); Red Blood Count 5.36 M/mm3 (4.6-6.2); White Blood Count 5.5 K/mm3 (4.4-11.0)
[2024-06-05 07:23] LABS: AST(SGOT) 116 U/L (<=37); Alanine Aminotransfer ALT/SGPT 117 U/L (<=46); Albumin, Serum 3.1 g/dL (3.5-5.0); Alkaline Phosphatase 97 U/L (40-129); Anion Gap 10 (5-15); BUN 11 mg/dL (4-19); BUN/Creat Ratio 13.3 RATIO (10-20); Bilirubin, Direct 0.29 mg/dL (0.00-0.30); Calcium,Total 8.5 mg/dL (7.6-11.0); Carbon Dioxide 25.9 mmol/L (21.0-32.0); Chloride 94 mmol/L (98-108); Creatinine, Serum 0.79 mg/dL (0.70-1.20); EST Glomerular Filtration Rate 108 (>60); Estimated Creatinine Clearance 138.28 ml/min (50-250); Globulin 3.4 g/dL (2.2-4.2); Glucose 293 mg/dL (70-99); Protein, Total 6.5 g/dL (5.9-8.4); Sodium Level 130 mmol/L (133-145); Total Bilirubin 0.55 mg/dL (0.00-1.30)
[2024-06-05 08:13] VITALS: BP 132/75; PULSE 60; RESP 18; TEMP 35.7; O2SAT 96
[2024-06-05] MEDS: oxyCODONE 5 MG Tablet PO ×2 (08:18→13:00)
[2024-06-05] MEDS: Enoxaparin 40 MG/0.4 ML Syringe SC (08:19)
[2024-06-05] MEDS: Aspirin E.C. 81 MG Tablet PO (08:19)
[2024-06-05] MEDS: ARIPiprazole 10 MG Tablet PO (08:19)
[2024-06-05 08:41] LABS: Bedside Glucose 327 mg/dL (74-106)
[2024-06-05] MEDS: Insulin Lispro 100 UNIT/ML INSULN.PEN 10 UNIT SC ×2 (09:07→12:55)
[2024-06-05] MEDS: Insulin Lispro 100 UNIT/ML INSULN.PEN SC ×2 (09:07→12:55)
--- NOTE | 2024-06-05 11:00 | CASEMGMT ---
PAT JAVIER Face to Face with patient for initial transition planning/care coordination assessment. PAT JAVIER introduced self and role at [facility]. Patient lying in bed, alert and oriented. Patient willing to participate in assessment and is able to answer all questions appropriately. Care providers, pharmacy, and demographics verified. Strata: 1 PCP: Harry Mcneil [facility] Specialists: none Preferred Pharmacy: [facility] Insurance: [email or web address] Prescription Benefit: yes Living Will/HPOA: none LNOK: brother Living Arrangements: Patient lives with brother in a mobile home with 4 steps and railing to enter the home. Patient is independent at home. Transportation: friend DME/HHC: Patient has glucometer with supplies. Patient received insulin pen and did not have pen needles, patient states he updated PCP. RN YAYA called [facility] and patient has script for pen needles. No previous HHC or SNF. Patient wishes to discharge home, denies need for home health at this time. Patient states he has no further needs or concerns at this time. CM to follow for discharge planning needs that may arise. Disposition Plan: Patient to discharge home with family support and follow-up plans in place. Ivet RODARTE, RN, CM
[2024-06-05] MEDS: Polyethylene Glycol 3350 17 GM PACKET PO (11:44)
[2024-06-05] MEDS: Senna Tablet 2 TABLET PO (11:44)
[2024-06-05 12:00] VITALS: PULSE 57
[2024-06-05 12:08] LABS: Bedside Glucose 379 mg/dL (74-106)
[2024-06-05 14:22] VITALS: BP 113/79; PULSE 64; RESP 20; TEMP 36.7; O2SAT 96
--- NOTE | 2024-06-05 14:40 | DS.PCM_ITS ---
Providers Date of Admission: 06/04/24 Date of Discharge: 06/05/24 Primary Care Physician: NINI Tompkins, [employer] Reason For Visit: Type 2 diabetes mellitus with severe hyperglycemia Diagnosis Discharge Diagnosis (1) Hyperglycemia: Status: Acute Code(s): R73.9 - Hyperglycemia, unspecified (2) Hyponatremia: Status: Acute Code(s): E87.1 - Hypo-osmolality and hyponatremia Medications at Discharge Home Medications aripiprazole 10 mg tablet 10 mg PO BID 06/04/24 aspirin 81 mg tablet,delayed release 81 mg PO DAILY 06/04/24 trazodone 150 mg tablet 150 mg PO QHS 06/04/24 insulin glargine 100 unit/mL (3 mL) subcutaneous pen (Lantus Solostar U-100 Insulin) 40 unit (0.4 mL) subcut QPM 30 days #15 mL 06/05/24 insulin lispro 100 unit/mL subcutaneous pen (Humalog KwikPen (U-100) Insulin) 15 unit (0.15 mL) subcut TID 30 days #15 mL 06/05/24 losartan 50 mg tablet 50 mg PO DAILY 30 days #30 tabs 06/05/24 metformin 500 mg tablet,extended release 24hr (osmotic) 500 mg PO BID 30 days #60 tabs 06/05/24 pen needle, diabetic 29 gauge x 1/2 (Pen Needle) #100 ea 06/05/24 Hospital Course Operations None Procedures - (CT abdomen pelvis) Summary of Care Provided Minutes Spent on Discharge: 35 Hospital Course: Patient is a 48-year-old male who presented to [facility] ED on 06/04/2024 with worsening abdominal/flank pain, polyuria and polydipsia. Short hospital course as noted below. Patient discharged home in stable condition on 06/05. 1. Poorly controlled type 2 diabetes mellitus with severe hyperglycemia ? Patient with borderline DKA on admission given severe hyperglycemia with anion gap of 24 and abdominal pain with nausea. However, beta-hydroxybutyrate was negative and patient had significant improvement in the ED with IV fluids, Zofran and morphine and repeat BMP was much improved after fluids and a dose of Humalog. Treated with Lantus at night and scheduled Humalog with meals while inpatient with fairly good control of blood sugars. A1c 14.6%. Will discharge on Lantus 40 units at night, Humalog 15 units with meals and metformin 500 mg twice daily. Recommend that patient have close outpatient follow-up with PCP at [facility] for further medication titration as needed. 2. Hyponatremia with superimposed pseudohyponatremia ? Sodium 119, chloride 85 on admit. Corrected sodium of 128 in setting of severe hyperglycemia. Presume secondary to dehydration from significant polyuria and polydipsia from hyperglycemia. Given 2 L of normal saline in the ED, repeat sodium 130 on hospital day 2. Suspect sodium level continue to improve with improved blood sugar control and improved p.o. intake. 3. Mild elevated LFTs ? AST 121, ALT 133 on admit. No baseline labs available. CT abdomen pelvis showed hepatomegaly with fatty infiltration. Presume elevated LFTs are secondary to fatty liver disease. Repeat LFTs stable on hospital day 2; no need to monitor further while inpatient, continue outpatient follow-up. Chronic medical conditions: ? Class I obesity: BMI 34 on admit. Encouraged lifestyle modifications. Complicates hospital course, care and prognosis. ? Hypertension: Home amlodipine and hydrochlorothiazide held during hospitalization. Given his diabetes, will start losartan 50 mg daily on discharge and discontinue home amlodipine and hydrochlorothiazide. ? Mood disorder: Continue home aripiprazole and trazodone at night as needed. *Patient notably improved more quickly than anticipated and was able to be discharged home in stable condition on hospital day 2. Total clinical time spent by myself addressing the patient's medical issues, reviewing all the data, and collaborating with patient's care team: 35 minutes. Physical Exam Const alert, oriented x3 and no apparent distress Constitutional Narrative: Middle-age male, class I obesity, mildly fatigued appearing but otherwise sitting back comfortably in bed, conversing normally and in no acute distress. Stable. General Appearance: cooperative and comfortable HEENT normocephalic, head/scalp atraumatic, hearing grossly normal bilaterally, nasal mucous membranes and turbinates normal and moist oral mucous membranes Eyes PERRL, EOMs intact bilaterally and conjunctivae normal Neck full ROM Chest inspection of chest normal Resp normal respiratory effort, normal air movement, no use of accessory muscles and clear to auscultation bilaterally Cardio regular rate, regular rhythm, no murmurs and peripheral pulses 2+ throughout GI normal to inspection, nondistended, normoactive bowel sounds, soft to palpation, non-tender and non-distended no CVA tenderness Bladder / Kidney Exam: bladder normal to palpation Back/Spine normal ROM Extremity normal to inspection, full ROM and no pedal edema Skin no rashes or lesions noted Neuro moves all extremities and no focal motor deficits Speech: speech normal Motor Exam: strength 5/5 throughout Psych mental status grossly normal Weight / BMI Weight Weight: 108.976 kg Body Mass Index (BMI) 34.4 ABG / Lab / Microbiology Data 06/05/24 06:41 06/05/24 06:41 Laboratory: Laboratory Results - last 24 hr 06/04/24 09:58: Sodium Cancelled, Potassium Cancelled, Chloride Cancelled, Carbon Dioxide Cancelled, Anion Gap Cancelled, BUN Cancelled, Creatinine Cancelled, Estim Creat Clear Calc Cancelled, Est GFR (MDRD) Non-Af Cancelled, BUN/Creatinine Ratio Cancelled, Glucose Cancelled, Calcium Cancelled 06/04/24 15:40: Sodium 127 L, Potassium 3.9, Chloride 91 L, Carbon Dioxide 18.3 L, Anion Gap 18 H, BUN 12, Creatinine 0.71, Estim Creat Clear Calc 153.86, Est GFR (MDRD) Non-Af 112, BUN/Creatinine Ratio 16.5, Glucose 344 H, Calcium 8.7 06/04/24 16:45: POC Glucose 365 H 06/04/24 19:46: Sodium 129 L, Potassium 4.0, Chloride 94 L, Carbon Dioxide 19.6 L, Anion Gap 15, BUN 11, Creatinine 0.78, Estim Creat Clear Calc 140.05, Est GFR (MDRD) Non-Af 109, BUN/Creatinine Ratio 14.5, Glucose 340 H, Calcium 8.7 06/04/24 21:38: POC Glucose 285 H 06/05/24 02:26: POC Glucose 221 H 06/05/24 06:41: WBC 5.5, RBC 5.36, Hgb 16.6 H, Hct 45.8, MCV 85.4, MCH 31.0, M CHC 36.2 H, RDW Std Deviation 38.8, RDW Coeff of Eric 12.6, Plt Count 130 L, MPV 11.8, Sodium 130 L, Potassium 4.0, Chloride 94 L, Carbon Dioxide 25.9, Anion Gap 10, BUN 11, Creatinine 0.79, Estim Creat Clear Calc 138.28, Est GFR (MDRD) Non- Af 108, BUN/Creatinine Ratio 13.3, Glucose 293 H, Calcium 8.5, Total Bilirubin 0.55, Direct Bilirubin 0.29, AST 116 H, ALT 117 H, Alkaline Phosphatase 97, Total Protein 6.5, Albumin 3.1 L, Globulin 3.4 06/05/24 08:10: POC Glucose 327 H 06/05/24 11:43: POC Glucose 379 H ABG: ABG 06/04/24 14:53 Specimen Type KIARA Sample Site Not entered VBG pH 7.34 VBG pO2 37 VBG HCO3 28 H VBG Total CO2 30 VBG O2 Sat (Calc) 66 VBG Base Excess 2 POC Mix VBG pCO2 Pt Tmp 51.6 H O2 Delivery Device Not entered D/C Instructions DC O2, CPAP, BIPAP Needs Home O2 Discharge instructions: No Meaningful Use Info Meaningful Use Meaningful Use Diagnoses (Choose all that apply): None applicable Ischemic Stroke Statin Dosing Therapy Reference: STATIN DOSE THERAPY REFERENCE: * Patients > 75 years receive moderate or high dose statin therapy. * Patients 75 years or YOUNGER should receive HIGH intensity statin dose unless contraindicated. You will be required to document reason for non-treatment if statin daily dose does not meet guidelines. HIGH DOSE STATIN THERAPY DAILY Atorvastatin > than or = to 40 mg Rosuvastatin > than or = to 20 mg Amlodipine + Atorvastatin > than or = to 2.5/40 mg Ezetimibe + Simvastatin 10/80 mg Simvastatin 80mg Discharge Plan Admission Admit Date/Time: 06/04/24 13:16 Primary Reason for Your Visit: very high blood sugars and abdominal pain Attending Provider: Mendez Handy Primary Care Provider: Sonido Mcneil [facility] Consulting Providers: Mendez Handy; Walker Glynn Instructions Additional Instructions / Restrictions: For new diabetes regimen please take the following: ? Lantus 40 units at night ? Humalog 15 units with meals ? Metformin 500 mg twice daily Please follow-up closely with your PCP for further dose adjustments as needed. Discharge Orders/Prescriptions Prescriptions: New losartan 50 mg tablet 50 mg PO DAILY 30 Days Qty: 30 0RF metformin 500 mg tablet extended release 24hr 500 mg PO BID 30 Days Qty: 60 0RF (DME) pen needle, diabetic [Pen Needle] 29 gauge x 1/2 needle See Rx Instructions .Route Qty: 100 0RF Rx Instructions: As directed insulin glargine [Lantus Solostar U-100 Insulin] 100 unit/mL (3 mL) insulin pen 40 unit subcut QPM 30 Days Qty: 15 0RF insulin lispro [Humalog KwikPen Insulin] 100 unit/mL insulin pen 15 unit subcut TID 30 Days Qty: 15 0RF Continued aspirin 81 mg tablet,delayed release (DR/EC) 81 mg PO DAILY trazodone 150 mg tablet 150 mg PO QHS aripiprazole 10 mg tablet 10 mg PO BID Discontinued glipizide 10 mg tablet 10 mg PO DAILY amlodipine 10 mg tablet 10 mg PO DAILY hydrochlorothiazide 12.5 mg tablet 12.5 mg PO DAILY insulin glargine [Lantus Solostar U-100 Insulin] 100 unit/mL (3 mL) insulin pen 20 unit subcut QPM Patient Comments: PT WAS GIVEN PENS FROM MD OFFICE ON 06/02/24, BUT NOT GIVEN PEN NEEDLES SO HASNT BEEN ABLE TO ADMINISTER. Referrals / Follow Up: Care Physician,No Primary [Non-Staff] - Sonido Mcneil, [employer] [Primary Care Provider] - Disposition Disposition (needs filled in before D/C Order can be placed): Home, Self Care Charges/Coding Visit Charges Inpatient E&M: 53028 Disch Hosp >30min
== END 2024-06-05 17:01 | disposition home or self-care (01) ==
LOC: ED 13:21 → ICU 13:33 → PCU 06-05 06:54
PROVIDERS: Admitting Provider Hospitalist; Emergency Provider Emergency Medicine; Visit Provider Hospitalist
DX: E11.65 Type 2 diabetes mellitus with hyperglycemia (principal); Z79.4 Long term (current) use of insulin; E87.1 Hypo-osmolality and hyponatremia; I10 Essential (primary) hypertension; K76.0 Fatty (change of) liver, not elsewhere classified; E86.0 Dehydration; E66.811 Obesity, class 1; K40.90 Unilateral inguinal hernia, without obstruction or gangrene, not specified as recurrent; K59.00 Constipation, unspecified; R16.0 Hepatomegaly, not elsewhere classified; F39 Unspecified mood [affective] disorder; F17.210 Nicotine dependence, cigarettes, uncomplicated; Z68.34 Body mass index [BMI] 34.0-34.9, adult; Z79.82 Long term (current) use of aspirin; Z79.84 Long term (current) use of oral hypoglycemic drugs; Z79.899 Other long term (current) drug therapy
CPT/HCPCS: 36415; 74177; 80048; 80053; 80076; 81001; 82010; 82803; 82962; 83036; 83605; 83690; 83735; 84100; 85025; 85027; 87086; 93005; 96361; 96372; 96374; 96375; 96376; 97802; 99221; 99284; Q9967; A4216; G0378; J2405

== ENCOUNTER 2024-06-09 16:21 | Emergency (ER) | payer MEDICAID, SELFPAY ==
[2024-06-09 16:21] VITALS: BP 171/93; PULSE 88; RESP 22; TEMP 36.4; O2SAT 98; BMI 34.9
--- NOTE | 2024-06-09 16:37 | EKG12_ITS ---
Test Reason : Blood Pressure : */* mmHG Vent. Rate : 77 BPM Atrial Rate : 77 BPM P-R Int : 88 ms QRS Dur : 90 ms QT Int : 376 ms P-R-T Axes : 112 48 55 degrees QTcB Int : 425 ms Sinus rhythm with short IN Otherwise normal ECG Confirmed by CY GIBBS, ANNETTE ([id number]), acquisitions editor MARIAH TREVIÑO ([id number]) on 06/11/2024 8:16:53 AM Referred By: ROBERTO Confirmed By: ANNETTE BENOIT MD
--- NOTE | 2024-06-09 16:38 | EDS_ITS ---
HPI History of Present Illness Chief Complaint: Hyperglycemia Narrative Narrative: 48-year-old male past medical history of diabetes, presents with elevated blood sugars that he has had all weekend. He relates history that he was admitted to the hospital for hyperglycemia and he states that he was in diabetic ketoacidosis. He was released on Sunday, approximately 3 days ago. Since then, he has not experienced any fever or chills, no nausea or vomiting but his blood sugars have ranged from 450 to the 500s. He was concerned about it today so he states he went to the [facility] clinic who referred him here for his elevated blood sugars. He states that he still takes metformin 500 mg twice a day and took his dose this morning. From his release from the hospital, he was started on Lantus 40 units subcutaneously at night, and he takes 15 units 3 times a day of regular insulin from a KwikPen. He states he has been taking the medication as directed, but his blood sugars remain high. [facility] Medical History No acute medical problems Home Medications ?Medication ?Instructions ?Recorded ?Last Taken ?Type aripiprazole 10 mg tablet 10 mg PO BID 06/04/24 History aspirin 81 mg tablet,delayed 81 mg PO DAILY 06/04/24 0 06/04/24 History release trazodone 150 mg tablet 150 mg PO QHS 06/04/2406/03 History insulin glargine 100 unit/mL (3 40 unit (0.4 mL) subcu t QPM 30 06/05/24 Unknown Rx mL) subcutaneous pen (Lantus days #15 mL Solostar U-100 Insulin) insulin lispro 100 unit/mL 15 unit (0.15 mL) subcut TI D 30 06/05/24 Unknown Rx subcutaneous pen (Humalog KwikPen days #15 mL (U-100) Insulin) losartan 50 mg tablet 50 mg PO DAILY 30 days #30 t abs 06/05/24 Unknown Rx pen needle, diabetic 29 gauge x #100 ea 06/05/24 Unkno wn Rx 1/2 (Pen Needle) amlodipine 10 mg tablet 10 mg PO DAILY 06/09/24 Unkn own History glipizide 10 mg tablet 10 mg PO DAILY 06/09/24 Unkn own History hydrochlorothiazide 12.5 mg tablet 12.5 mg PO DAILY Unknown History metformin 500 mg tablet,extended 500 mg PO BID 5 Unknown History release 24 hr Allergy/AdvReac Type Severity Reaction Status Date / Time acetaminophen (From Vicodin) AdvReac Nausea Verified 06/09/24 16:23 hydrocodone (From Vicodin) AdvReac Nausea Verified 06/09/24 16:23 Surgical History Hx of tonsillectomy Hx of cholecystectomy Social History household members: children Smoking Status: Current every day smoker tobacco type: cigarettes substance use type: other details: Drug use but specified not a significant problem ROS ROS ED ROS Narrative Review of systems positive for elevated blood sugars. Patient may have expe rienced slight nausea but denies any vomiting. Has had decreased appetite. No fevers or chills, no diarrhea, no other symptoms. EXAM Physical Exam Narrative Exam Narrative: Afebrile. Vital signs noted. Nontoxic-appearing. Cardiovascular examination reveals a regular rate and rhythm. Lungs are clear to auscultation bilaterally. The abdomen is soft and nontender without guarding or rebound, positive bowel sounds. Neurological examination is nonfocal and nonlateralizing. Const Vital Signs: 06/09/24 16:21 06/09/24 16:39 06/09/24 18:21 Temperature 97.6 F L Temperature Source Oral Pulse Rate 88 87 Respiratory Rate 22 H 16 Respiratory Effort Normal Non-Labored Respiratory Pattern Normal Blood Pressure 171/93 H 116/63 Blood Pressure Mean 119 80 Pulse Ox 98 98 Oxygen Delivery Method Room Air 06/09/24 20:00 Temperature Temperature Source Pulse Rate 78 Respiratory Rate 16 Respiratory Effort Respiratory Pattern Blood Pressure 120/89 H Blood Pressure Mean 99 Pulse Ox 98 Oxygen Delivery Method MDM MDM MDM Narrative Medical decision making narrative: Differential diagnosis includes but not limited to diabetic hyperglycemia versus diabetic ketoacidosis. I reviewed his prior problem list and his prior ED visit. He had a normal pH on VBG if not slightly low at 7.3. He was diagnosed with high anion gap metabolic acidosis and hyperglycemia as well as hyponatremi a. I did review his discharge note, and he had borderline DKA, while he had a high anion gap and hyperglycemia, his beta hydroxybutyrate was negative and his BMP improved after IV fluids and a dose of Humalog. I reviewed his laboratory work from today. Venous blood gas shows a pH of 7.42 with pCO2 of 37 and pO2 of 68. I do not feel he is acidotic. I reviewed his laboratory work and he has normal white count of 7.3 with hemoglobin hemoconcentrated 18.0, but in review of prior laboratories it has been this high in the past. Platelet count normal at 155. His sodium is low at 125 but I thin k this is falsely low secondary to his hyperglycemia 449. BUN is normal at 9 with creatinine 0.73. Urinalysis is negative for infection and is negative for ketones as well. His beta hydroxybutyrate was delayed but is normal at 0.2. He has a normal anion gap as well at 14. At this point in time, I do not feel he is not diabetic ketoacidosis. After 1 L of IV fluids, his blood sugar was rechecked and is in the 290s. It is downtrending. Patient would like to be discharged. He is supposed to eat and take 15 units of regular insulin, but to prevent him from experiencing hypoglycemia, he is going to go home and take his 40 units of long-acting insulin. He has a follow-up appointment with his primary care provider tomorrow. They may need to increase his metformin to get better control of his blood glucose. At this point in time, I do not feel he requires observation or admission as his sugars are downtrending. Disposition is discharged home in stable condition. Return instructions were reviewed. History & Record Review Discussion w/independent historian: Patient and Friend Additional record(s) reviewed:: Prior inpatient record and Prior ED visit Lab Data Attestation: I reviewed the patient's lab results. Labs: Laboratory Results - last 24 hr 06/09/24 06/09/24 06/09/24 16:32 16:49 16:54 WBC 7.3 RBC 5.83 Hgb 18.0 H* Hct 50.3 MCV 86.3 MCH 30.9 MCHC 35.8 RDW Std Deviation 40.2 RDW Coeff of Eric 13.0 Plt Count 155 MPV 12.3 H Immature Gran % (Auto) 0.800 Neut % (Auto) 54.0 Lymph % (Auto) 33.0 [place] % (Auto) 10.6 H Eos % (Auto) 1.0 Baso % (Auto) 0.6 Absolute Neuts (auto) 3.9 Absolute Lymphs (auto) 2.39 Nucleated RBC % 0 Diff Path Review May foll Platelet Estimate A Polychromasia 1+ Sodium 125 L Potassium 4.1 Chloride 90 L Carbon Dioxide 21.4 Anion Gap 14 BUN 9 Creatinine 0.73 Estim Creat Clear Calc 150.71 Est GFR (MDRD) Non-Af 111 BUN/Creatinine Ratio 11.8 Glucose 449 H Calcium 9.2 Total Bilirubin 0.64 AST 251 H ALT 188 H Alkaline Phosphatase 113 Total Protein 7.6 Albumin 3.5 Globulin 4.1 Albumin/Globulin Ratio 0.9 b-Hydroxybutyric mmol/L 0.2 Urine Color Yellow Urine Clarity Clear Urine pH 6.0 Ur Specific [place] 1.010 Urine Protein 15 H Urine Glucose (UA) 1000 H Urine Ketones Negative Urine Occult Blood Negative Urine Nitrite Negative Urine Bilirubin Negative Urine Urobilinogen 1 H Ur Leukocyte Esterase Negative Urine RBC 0-5 SEEN Urine WBC 0 SEEN Ur Squamous Epith Cells 0 SEEN Urine Bacteria 0 SEEN Urine Mucus 0 SEEN POC Glucose > 500 H* 06/09/24 06/09/24 18:33 20:01 WBC RBC Hgb Hct MCV MCH MCHC RDW Std Deviation RDW Coeff of Eric Plt Count MPV Immature Gran % (Auto) Neut % (Auto) Lymph % (Auto) [place] % (Auto) Eos % (Auto) Baso % (Auto) Absolute Neuts (auto) Absolute Lymphs (auto) Nucleated RBC % Diff Path Review Platelet Estimate Polychromasia Sodium Potassium Chloride Carbon Dioxide Anion Gap BUN Creatinine Estim Creat Clear Calc Est GFR (MDRD) Non-Af BUN/Creatinine Ratio Glucose Calcium Total Bilirubin AST ALT Alkaline Phosphatase Total Protein Albumin Globulin Albumin/Globulin Ratio b-Hydroxybutyric mmol/L Urine Color Urine Clarity Urine pH Ur Specific [place] Urine Protein Urine Glucose (UA) Urine Ketones Urine Occult Blood Urine Nitrite Urine Bilirubin Urine Urobilinogen Ur Leukocyte Esterase Urine RBC Urine WBC Ur Squamous Epith Cells Urine Bacteria Urine Mucus POC Glucose 475 H* 298 H ABG Data ABG results: ABG 06/09/24 20:11 Specimen Type KIARA Sample Site Not entered VBG pH 7.43 H VBG pO2 68 H VBG HCO3 25 VBG Total CO2 26 VBG O2 Sat (Calc) 94 H VBG Base Excess 1 POC Mix VBG pCO2 Pt Tmp 37.9 L O2 Delivery Device Not entered Discharge Plan Triage Chief Complaint: Hyperglycemia ED Provider: Osiel Brown Dx/Rx/DC Orders Clinical Impression: Hyperglycemia, Hyponatremia, Diabetes Instructions: ED Diabetic Hyperglycemia Prescriptions: No Action aspirin 81 mg tablet,delayed release (DR/EC) 81 mg PO DAILY trazodone 150 mg tablet 150 mg PO QHS aripiprazole 10 mg tablet 10 mg PO BID losartan 50 mg tablet 50 mg PO DAILY 30 Days Qty: 30 0RF (DME) pen needle, diabetic [Pen Needle] 29 gauge x 1/2 needle See Rx Instructions .Route Qty: 100 0RF Rx Instructions: As directed insulin glargine [Lantus Solostar U-100 Insulin] 100 unit/mL (3 mL) insulin pen 40 unit subcut QPM 30 Days Qty: 15 0RF insulin lispro [Humalog KwikPen Insulin] 100 unit/mL insulin pen 15 unit subcut TID 30 Days Qty: 15 0RF glipizide 10 mg tablet 10 mg PO DAILY amlodipine 10 mg tablet 10 mg PO DAILY metformin 500 mg tablet extended release 24 hr 500 mg PO BID hydrochlorothiazide 12.5 mg tablet 12.5 mg PO DAILY Primary Care Provider: Sonido Mcneil Referrals: Sonido Mcneil, [employer] [Primary Care Provider] - 1 Day Activity Restrictions/Additional Instructions: Follow-up with your primary care provider tomorrow. You may want to only take your long-acting insulin tonight after you go home and eat a smaller meal. You are not found to be in diabetic ketoacidosis today. Keep a log of your blood sugars for your primary care provider. Return with new or worsening symptoms. Print Language: Kiswahili Disposition Disposition: Home, Self Care
[2024-06-09 16:50] LABS: Bedside Glucose > 500 mg/dL (74-106)
[2024-06-09] MEDS: 0.9% Normal Saline (1000mL) 1,000 ML 999 ML IV (16:58)
[2024-06-09 17:00] LABS: Bacteria 0 SEEN /hpf (None Seen); Mucous, Urine 0 SEEN /hpf (<or=2+); Squamous Epithelial Cells - UA 0 SEEN /hpf (0-5); White Blood Cells 0 SEEN /hpf (0-5)
[2024-06-09 17:05] LABS: Color, Urine Yellow (Yellow); Glucose, Dipstick 1000 mg/dl (Normal); Ketone-Dipstick Negative (Negative); Leukocyte Esterase-Dipstick Negative /ul (Negative); Nitrite-Dipstick Negative (Negative); Occult Blood-Urine Negative /ul (Negative); Protein-Dipstick 15 mg/dl (Negative); Urine Bilirubin Dipstick Negative (Negative); Urine Clarity Clear (Clear); Urine Urobilinogen 1 mg/dl (Normal)
[2024-06-09 17:13] LABS: Absolute Lymphocyte Count 2.39 X10^3/uL (0.83-4.51); Absolute Neutrophil Count 3.9 X10^3/uL (2.0-7.7); Basophil# 0.04 X10^3/uL; Basophil% 0.6 % (0-1); Eosinophil# 0.07 X10^3/uL; Hematocrit 50.3 % (40-54); Lymphocyte # 2.39 X10^3/ul (0.83-4.51); Mean Corp Hgb Conc 35.8 g/dL (32-36); Mean Corpuscular Hgb 30.9 pg (27.0-32.0); Mean Corpuscular Volume 86.3 fL (80-94); Mean Platelet Vol. 12.3 fl (6.2-12.0); Monocyte# 0.77 X10^3/uL; Monocyte% 10.6 % (0-10); NRBC Flagged by Analyzer 0 % (0-5); Neutrophil # 3.92 X10^3/uL (2.7-7.7); Platelet Count 155 K/mm3 (150-450); RBC Distribution Width SD 40.2 fl (35.1-43.9); Red Blood Count 5.83 M/mm3 (4.6-6.2); White Blood Count 7.3 K/mm3 (4.4-11.0)
[2024-06-09 17:44] LABS: Red Blood Cells-Urine 0-5 SEEN /hpf (0-5)
[2024-06-09 17:59] LABS: Platelet Estimate A (ADEQ); Polychromasia 1+
[2024-06-09 18:00] LABS: Pathologist Review May foll
[2024-06-09 18:21] VITALS: BP 116/63; PULSE 87; RESP 16; O2SAT 98
[2024-06-09 18:51] LABS: Bedside Glucose 475 mg/dL (74-106)
[2024-06-09 20:00] VITALS: BP 120/89; PULSE 78; RESP 16; O2SAT 98
[2024-06-09 20:05] LABS: ALB/GLOB Ratio 0.9 RATIO (0.9-2.4); AST(SGOT) 251 U/L (<=37); Alanine Aminotransfer ALT/SGPT 188 U/L (<=46); Albumin, Serum 3.5 g/dL (3.5-5.0); Alkaline Phosphatase 113 U/L (40-129); Anion Gap 14 (5-15); BUN 9 mg/dL (4-19); BUN/Creat Ratio 11.8 RATIO (10-20); Calcium,Total 9.2 mg/dL (7.6-11.0); Carbon Dioxide 21.4 mmol/L (21.0-32.0); Chloride 90 mmol/L (98-108); Creatinine, Serum 0.73 mg/dL (0.70-1.20); EST Glomerular Filtration Rate 111 (>60); Estimated Creatinine Clearance 150.71 ml/min (50-250); Globulin 4.1 g/dL (2.2-4.2); Glucose 449 mg/dL (70-99); Potassium 4.1 mmol/L (3.3-5.1); Protein, Total 7.6 g/dL (5.9-8.4); Sodium Level 125 mmol/L (133-145); Total Bilirubin 0.64 mg/dL (0.00-1.30)
[2024-06-09 20:15] LABS: Blood Gas Specimen Type VEN; O2 Delivery Device Not entered; SITE Not entered; VBG BASE EXCESS 1 mmol/L (-1.0-3.5); VBG Bicarbonate 25 mmol/L (22-26); VBG PO2 68 mmHg (25-40); VBG SO2 94 % (50-70); VBG TCO2 26 mmol/L (23-33); VBG pCO2 37.9 mmHg (41-51); VBG pH 7.43 (7.32-7.42)
[2024-06-09 20:18] LABS: Bedside Glucose 298 mg/dL (74-106)
[2024-06-09 20:44] LABS: BETA-HYDROXYBUTYRATE 0.2 mmol/L (0.0-0.3)
[2024-06-09 20:56] VITALS: BP 120/89; PULSE 78; RESP 16; TEMP 36.6; O2SAT 98
== END 2024-06-09 21:08 | disposition home or self-care (01) ==
PROVIDERS: Emergency Provider Emergency Medicine; Visit Provider Emergency Medicine
DX: E11.65 Type 2 diabetes mellitus with hyperglycemia (principal); Z79.4 Long term (current) use of insulin; E87.1 Hypo-osmolality and hyponatremia; F17.210 Nicotine dependence, cigarettes, uncomplicated; Z79.899 Other long term (current) drug therapy; Z79.84 Long term (current) use of oral hypoglycemic drugs
CPT/HCPCS: 80053; 81001; 82010; 82803; 82962; 85025; 93005; 96360; 99283; A4216